=== PATIENT | female | born 1995 | race Caucasian/White ===

== ENCOUNTER → 2021-02-08 | Outpatient (CLI) | payer SELFPAY ==
--- NOTE | 2021-02-08 08:45 | REP ---
INDICATION: LUQ PAIN, PALPABLE MASS COMPARISON: None. TECHNIQUE: Real time garcia scale ultrasound examination using curved array transducer. FINDINGS: Liver is normal in contour, size, and echogenicity without focal hepatic lesions identified. Pancreas is normal in size, appearance, and echotexture. No obvious pancreatic mass lesion or peripancreatic fluid is identified by ultrasound. The gallbladder is normal and without gallstones, wall thickening, or pericholecystic fluid. No biliary ductal dilatation is appreciated and the common bile duct measures 2.7 mm diameter. Right kidney is normal in reniform shape without hydronephrosis and measures 10.6 x 4.7 x 3.4 cm. No ascites in the visualized right upper quadrant. IMPRESSION: Normal limited abdominal ultrasound. Normal appearance of pancreas. <Electronically signed by Mil Saeed > 02/08/21 0839
== END ==
LOC: M RAD 07:50
PROVIDERS: ATTEND Physician Assistant Medical
DX: R10.12 Left upper quadrant pain (principal)